=== PATIENT | male | born 1980 | race Two or more races ===

== ENCOUNTER 2020-03-12 16:25 | Emergency (ER) | payer BC, MEDICAID ==
[2020-03-12] MEDS ORDERED: Aspirin 81 MG Tab.Chew PO ONE (17:16)
--- NOTE | 2020-03-12 17:41 | CR ---
INDICATION: Chest pain. CHEST, ONE VIEW: Portable AP upright view of the chest 03/12/20 was compared with 10/15/09. The heart did not appear enlarged. The mediastinum and bony thorax as visualized appeared unremarkable. A definite active infiltrate or effusion was not identified. Overlying EKG leads are noted. IMPRESSION: No acute process. MTDD
--- NOTE | 2020-03-12 17:54 | EDM.PDOC ---
ED HPI GENERAL MEDICAL PROBLEM - General Chief Complaint: Chest Pain Stated Complaint: CHEST PAIN Time Seen by Provider: 03/12/20 16:30 Source of Information: Reports: Patient History Limitations: Reports: No Limitations - History of Present Illness INITIAL COMMENTS - FREE TEXT/NARRATIVE: Patient presented to the ED because of Rt sided chest pain,sharp,3/10 and worse with deep breathing. He denies having any cough and cold,fever or chils. No recent trauma or injury and is otherwise healthy. R chest Pain Score (Numeric/FACES): 2 - Related Data Allergies Allergy/AdvReac Type Severity Reaction Status Date / Time Penicillins Allergy Rash Verified 03/12/20 16:40 Home Meds: Home Meds NK [No Known Home Meds] 03/12/20 [History] Past Medical History Musculoskeletal History: Reports: Fracture Other Musculoskeletal History: hx hairline fx L ankle Neurological History: Reports: Migraines Endocrine/Metabolic History: Reports: Obesity/BMI 30+ - Infectious Disease History Infectious Disease History: Reports: Chicken Pox - Past Surgical History Musculoskeletal Surgical History: Reports: None Social & Family History - Family History Family Medical History: Noncontributory - Tobacco Use Smoking Status *Q: Light Tobacco Smoker Years of Tobacco use: 20 Packs/Tins Daily: 0.2 - Caffeine Use Caffeine Use: Reports: Soda - Alcohol Use Days Per Week of Alcohol Use: 2 Number of Drinks Per Day: 2 Total Drinks Per Week: 4 - Recreational Drug Use Recreational Drug Use: No ED ROS GENERAL - Review of Systems Review Of Systems: See Below Constitutional: Reports: No Symptoms HEENT: Reports: No Symptoms Respiratory: Reports: Pleuritic Chest Pain Cardiovascular: Reports: No Symptoms Endocrine: Reports: No Symptoms GI/Abdominal: Reports: No Symptoms : Reports: No Symptoms Musculoskeletal: Reports: No Symptoms Skin: Reports: No Symptoms Neurological: Reports: No Symptoms Psychiatric: Reports: No Symptoms ED EXAM, GENERAL - Physical Exam Exam: See Below Exam Limited By: No Limitations General Appearance: Alert, No Apparent Distress Eye Exam: Bilateral Eye: PERRL Ears: Normal External Exam, Normal Canal Nose: Normal Inspection, Normal Mucosa, No Blood Throat/Mouth: Normal Inspection, Normal Lips Head: Atraumatic, Normocephalic Neck: Normal Inspection, Supple, Non-Tender, Full Range of Motion Respiratory/Chest: No Respiratory Distress, Lungs Clear, Normal Breath Sounds, Other (rt chest wall tenderness) GI/Abdominal: Normal Bowel Sounds, Soft, Non-Tender, No Organomegaly Back Exam: Normal Inspection, Full Range of Motion Extremities: Normal Inspection, Normal Range of Motion, Non-Tender Neurological: Alert, Oriented, CN II-XII Intact, Normal Cognition Course - Vital Signs Text/Narrative:: Labs/EKG/CXR was discussed with patient and verbalized full iunderstanding EKG-NSR Trop-neg [id number] mg po x1 Last Recorded V/S: Last Vital Signs Temp 36.6 C 03/12/20 16:25 Pulse 80 03/12/20 17:45 Resp 21 H 03/12/20 17:45 BP 124/89 03/12/20 17:45 Pulse Ox 99 03/12/20 17:45 - Orders/Labs/Meds Orders: Active Orders 24 hr Category Date Time Status EKG Documentation Completion [RC] ASDIRECTED Care 03/12/20 17:14 Active EKG 12 Lead [EK] Routine Ther 03/12/20 16:35 Ordered Labs: Laboratory Tests 03/12/20 03/12/20 03/12/20 Range/Units 16:35 16:35 16:35 WBC 7.5 (4.5-12.0) X10-3/uL RBC 5.03 (4.30-5.75) x10(6)uL Hgb 14.9 (13.5-17.8) g/dL Hct 44.6 (30.0-51.3) % MCV 88.8 (80-96) fL MCH 29.7 (27.7-33.6) pg MCHC 33.5 (32.2-35.4) g/dL RDW 11.8 (11.5-15.5) % Plt Count 318 (125-369) X10(3)uL MPV 8.3 (7.4-10.4) fL Neut % (Auto) 59.2 (46-82) % Lymph % (Auto) 29.8 (13-37) % Thayer % (Auto) 9.6 (4-12) % Eos % (Auto) 1 (1.0-5.0) % Baso % (Auto) 1 (0-2) % Neut # (Auto) 4.5 (1.6-8.3) # Lymph # (Auto) 2.2 (0.6-5.0) # Thayer # (Auto) 0.7 (0.0-1.3) # Eos # (Auto) 0.1 (0.0-0.8) # Baso # (Auto) 0.0 (0.0-0.2) # D-Dimer, Quantitative 0.51 (0.0-0.59) mg/LFEU Sodium 141 (135-145) mmol/L Potassium 3.6 (3.5-5.3) mmol/L Chloride 103 (100-110) mmol/L Carbon Dioxide 27 (21-32) mmol/L BUN 10 (7-18) mg/dL Creatinine 1.0 (0.70-1.30) mg/dL Est Cr Clr Drug Dosing TNP Estimated GFR (MDRD) > 60 (>60) BUN/Creatinine Ratio 10.0 (9-20) Glucose 92 (80-116) mg/dL Calcium 8.9 (8.6-10.2) mg/dL Total Bilirubin 0.3 (0.1-1.3) mg/dL AST 20 (5-25) IU/L ALT 34 (12-36) U/L Alkaline Phosphatase 111 (56-112) IU/L Troponin I (4.0-60.3) pg/mL Total Protein 8.2 H (6.0-8.0) g/dL Albumin 4.1 (3.5-5.2) g/dL Globulin 4.1 g/dL Albumin/Globulin Ratio 1.0 04/30/20 Range/Units 16:35 WBC (4.5-12.0) X10-3/uL RBC (4.30-5.75) x10(6)uL Hgb (13.5-17.8) g/dL Hct (30.0-51.3) % MCV (80-96) fL MCH (27.7-33.6) pg MCHC (32.2-35.4) g/dL RDW (11.5-15.5) % Plt Count (125-369) X10(3)uL MPV (7.4-10.4) fL Neut % (Auto) (46-82) % Lymph % (Auto) (13-37) % Thayer % (Auto) (4-12) % Eos % (Auto) (1.0-5.0) % Baso % (Auto) (0-2) % Neut # (Auto) (1.6-8.3) # Lymph # (Auto) (0.6-5.0) # Thayer # (Auto) (0.0-1.3) # Eos # (Auto) (0.0-0.8) # Baso # (Auto) (0.0-0.2) # D-Dimer, Quantitative (0.0-0.59) mg/LFEU Sodium (135-145) mmol/L Potassium (3.5-5.3) mmol/L Chloride (100-110) mmol/L Carbon Dioxide (21-32) mmol/L BUN (7-18) mg/dL Creatinine (0.70-1.30) mg/dL Est Cr Clr Drug Dosing Estimated GFR (MDRD) (>60) BUN/Creatinine Ratio (9-20) Glucose (80-116) mg/dL Calcium (8.6-10.2) mg/dL Total Bilirubin (0.1-1.3) mg/dL AST (5-25) IU/L ALT (12-36) U/L Alkaline Phosphatase (56-112) IU/L Troponin I 6.7 (4.0-60.3) pg/mL Total Protein (6.0-8.0) g/dL Albumin (3.5-5.2) g/dL Globulin g/dL Albumin/Globulin Ratio Meds: Medications Discontinued Medications Generic Name Dose Route Start Last Admin Trade Name Freq PRN Reason Stop Dose Admin Aspirin 324 mg 03/12/20 17:16 03/12/20 17:18 Aspirin PO 03/12/20 17:17 324 mg ONETIME ONE Administration Departure - Departure Time of Disposition: 17:55 Disposition: Home, Self-Care 01 Condition: Good Clinical Impression: Chest pain, atypical Instructions: Nonspecific Chest Pain, Adult, [id number] Referrals: PCP,None [Primary Care Provider] - Forms: ED Department Discharge Additional Instructions: Please read discharge instructions on atypical chest pain take ibuprofen 800 mg with tylenol 1000 mg every 8 hours as needed for pain follow up as needed Sepsis Event Note - Evaluation Sepsis Screening Result: No Definite Risk - Focused Exam Vital Signs: Vital Signs Temp Pulse Resp BP Pulse Ox 03/12/20 17:45 80 21 H 124/89 99 03/12/20 17:30 85 20 131/88 99 03/12/20 17:00 78 19 100/87 100 03/12/20 16:45 81 19 130/80 100 03/12/20 16:30 80 19 139/79 100 03/12/20 16:25 36.6 C 83 18 147/79 H 100 Date Exam was Performed: 03/12/20 Time Exam was Performed: 23:00 - My Orders Last 24 Hours: My Active Orders 03/12/20 16:35 EKG 12 Lead [EK] Routine 03/12/20 17:14 EKG Documentation Completion [RC] ASDIRECTED - Assessment/Plan Last 24 Hours: My Active Orders 03/12/20 16:35 EKG 12 Lead [EK] Routine 03/12/20 17:14 EKG Documentation Completion [RC] ASDIRECTED
== END 2020-03-12 18:02 | disposition home or self-care (01) ==
LOC: FB.ED 16:25
DX: R07.89 Other chest pain (principal); F17.210 Nicotine dependence, cigarettes, uncomplicated; Z88.0 Allergy status to penicillin
CPT/HCPCS: 36415; 71045; 80053; 84484; 85025; 85379; 93005; 99285-25; A9270-GY

== ENCOUNTER 2025-08-20 02:43 | Emergency (ER) | payer SELFPAY | END 2025-08-20 03:57 | disposition home or self-care (01) | LOC: FB.ED 02:43 | DX: M62.838 Other muscle spasm (principal); E66.9 Obesity, unspecified; Z88.0 Allergy status to penicillin; Z68.35 Body mass index [BMI] 35.0-35.9, adult | CPT/HCPCS: 99283; A9270 ==